=== PATIENT | male | born 1945 | race Caucasian/White ===

== ENCOUNTER → 2019-03-04 | Outpatient (CLI) | payer OTHER ==
[~2019-03-04] MED LIST: APIX5TAB PO; ASCO10004 PO; ASCO500T8 PO; ASPI-496 PO; ATOR20TA37 PO; CALC1CAP8 PO; CHOL200024 PO; CYAN1TAB29 PO; DOCU-131 PO; ENAL5TAB PO; FURO20TA3 PO; GLUC1CAP18 PO; GLUC1CAP40 PO; HYDR-3237 PO; LACT1CAP35 PO; MELO15TA24 PO; MELO7.5T31 PO; METH500T5 PO; METO25TA35 PO; MIRA50TA PO; MULT-642 PO; OMEG1CAP30 PO; POTA20TA14 PO; POTA20TA89 PO; SIMV20TA3 PO; SULF1TAB24 PO; UBID1CAP43 PO; UBID200C35 PO
[2019-03-04 10:20] LABS: BASOPHILS # (AUTO) 0.01 x10^3/uL (0-0.1); BASOPHILS % (AUTO) 0 % (0-1); EOSINOPHILS # (AUTO) 0.04 x10^3/uL (0-0.4); EOSINOPHILS % (AUTO) 1 % (1-7); LYMPHOCYTES # (AUTO) 0.66 x10^3/uL (1-3.4); LYMPHOCYTES % (AUTO) 18 % (22-44); MD NO; MEAN CORPUSCULAR HEMOGLOBIN 31.6 pg (27.5-34.5); MEAN CORPUSCULAR HGB CONC 33.4 g/dL (33.2-36.2); MEAN CORPUSCULAR VOLUME 94.4 fL (81-97); MEAN PLATELET VOLUME 7.4 fL (7.4-10.4); MONOCYTES # (AUTO) 0.34 x10^3/uL (0.2-0.8); MONOCYTES % (AUTO) 9 % (2-9); NEUTROPHILS % (AUTO) 72 % (42-75); PLATELET COUNT 217 x10^3/uL (130-400); RED BLOOD COUNT 4.03 x10^6/uL (4.38-5.82); RED CELL DISTRIBUTION WIDTH 14.3 % (9.4-14.8)
[2019-03-04 10:33] LABS: ALANINE AMINOTRANSFERASE 22 U/L (12-78); ALBUMIN 3.7 g/dL (3.4-5.0); ANION GAP 5 mmol/L (5-15); CALCIUM 9.5 mg/dL (8.5-10.1); CHLORIDE 111 mmol/L (98-107); CREATININE 1.23 mg/dL (0.7-1.3)
[2019-03-04 10:34] LABS: MICROSCOPIC AUTO
[2019-03-04 10:35] LABS: ALKALINE PHOSPHATASE 93 U/L (45-117); BILIRUBIN,TOTAL 0.8 mg/dL (0.2-1.0); TOTAL PROTEIN 7.5 g/dL (6.4-8.2)
== END | disposition home or self-care (01) ==
LOC: STAR 09:07
PROVIDERS: ATTEND Urology
DX: Z01.818 Encounter for other preprocedural examination (principal); I45.10 Unspecified right bundle-branch block; Z90.6 Acquired absence of other parts of urinary tract
CPT/HCPCS: 36415; 80053; 81001; 85025; 87086; 93005